=== PATIENT | male | born 1985 | race Caucasian/White ===

== ENCOUNTER 2017-02-22 21:26 | Emergency (ER) | payer MEDICAID, OTHER ==
[~2017-02-22] VITALS: Ht 172.7 cm; Wt 95.4 kg
[2017-02-22 21:29] VITALS: BP 143/97; PULSE 92; RESP 18; O2SAT 97
--- NOTE | 2017-02-22 21:59 | ED.REPORT ---
HPI-Rash / Abscess Date of Service Feb 22, 2017 ED Provider: Dr. Contreras Pt is a 31 y/o male w/ a hx of IV drug abuse presenting to the ED c/o abscess about the left axilla onset 1 week ago. The patient noticed a bump in his left axilla 1 week ago and thought it was an ingrown hair but since then it has grown into a large painful fluid filled mass. He squeezed out some pus today. Pt denies any other symptoms. The patient is an IV heroin user and reports he hasn't used in a long time. Nursing Notes Stated Complaint: BUMP UNDER LEFT ARM PIT Chief Complaint: Skin Rash/Abscess Nursing Notes Reviewed: Yes Allergies: Coded Allergies: No Known Allergies (Verified Allergy, Unknown, 02/22/17) Scheduled Sulfamethoxazole/Trimeth 800-160 mg (Bactrim DS) 1 Each Tablet 1 TABLET PO BID General Time Seen by MD: 21:59 Chief Complaint Abscess Hx Obtained From: Patient Arrived By: Walk-in Onset Occurred: 1 week ago Symptom Duration: Since onset Location: : Axilla Quality: Painful Severity: Current: Moderate Severity: Maximum: Moderate Recent Healthcare: No recent doctor visit, No recent hospitalization Similar Sx Previous: No Past Medical History Past Medical History Notes: No medications daily Past Medical History None Past Surgical History None Family History No significant family history Smoking History Current Every Day Smoker Social History Alcohol Use: Denies alcohol use Ambulatory Status Independent Review of Systems Constitutional: Denies: Chills, Fever Respiratory: Denies: Non-productive cough, Shortness of breath Cardiovascular: Denies: Chest pain, Dyspnea on exertion GI: Denies: Abdominal pain, Nausea, Vomiting Skin: Reports Rash Complete sys rev & neg: except as marked. Physical Exam Initial Vital Signs Vital Signs (First) Date Time Temp Pulse Resp B/P Pulse Ox O2 Delivery O2 Flow Rate FiO2 02/22/17 21:29 36.2 92 18 143/97 97 Room Air Initial VS: Reviewed, Vital signs normal Head / Eyes: Atraumatic, Normocephalic, PERRL ENT: Mucous membranes moist, Conjunctiva normal, No scleral icterus Neck: Supple, Full range of motion Respiratory: Breath sounds normal, Clear to auscultation, No respiratory distress Cardiovascular: Regular rate & rhythm, Heart sounds normal, Intact distal pulses Abdomen / GI: Soft, No distention Extremities: Vascular intact, Neuro intact, No swelling, No tenderness Neurologic: Alert, Oriented, Nonfocal Psychiatric: Mood/affect normal, Behavior normal, Normal thought content General/Constitutional: Awake, Alert, No acute distress, Well appearing, Cooperative, Not toxic appearing Skin: Atraumatic, Warm, Dry, Intact Abscess Notes: 1x2 cm firm mass left axillary region. No fluctuance Mild surrounding erythema Re-Eval/Medical Decision Med Decision/Clinical Course Left axillary abscess. There is no fluctuance. There is afebrile. He does have a history of IV drug use. He prefers not incision and drainage at this time. Placed on Bactrim. Return precautions given. Re-Evaluation/Progress : Time of Eval: 22:09 Re-Evaluation/Progress Note: Pt rechecked. Informed pt of plan for treatment. Pt understands and agrees with plan for treatment. F/U instructions and RTER warnings given. All questions addressed. Counseled Regarding: Diagnosis, Need for follow-up, When/why to return to ED Discharge & Departure Impression: Primary Impression: Abscess of axilla, left Disposition: Home Discharge Condition All VS Reviewed: Yes Condition: Stable Patient Instructions: Abscess (ED) Additional Instructions: You have an abscess. You opted to not have it drained today. Complete the full course of antibiotics as prescribed. Return to the emergency department for spreading rash, swelling, fever, shaking chills, lightheadedness, increased pain, vomiting, or for other concerning symptoms. Follow-up with a medical professional in 3-4 days for a recheck. The [facility] would be happy to see you if you do not have a doctor. Referrals: [facility] Scribe Attestation Portions of this note were transcribed by José Barfield. I, Dr. Contreras, personally performed the history, physical exam and medical decision-making; I reviewed and confirmed the accuracy of the information in the transcribed note. Signed by Tono Mercado, 02/22/172214 Christos Contreras MD Feb 22, 2017 21:59 JOSÉ BARFIELD Feb 22, 2017 22:09
[2017-02-22] MEDS ORDERED: SULF1TAB7 PO (22:08)
[2017-02-22] MEDS ORDERED: Trimethoprim-Sulfa 160 mg-800 mg Tablet PO ONE (22:10)
== END 2017-02-22 22:36 | disposition home or self-care (01) ==
LOC: SED 21:26
DX: L02.412 Cutaneous abscess of left axilla (principal); F17.200 Nicotine dependence, unspecified, uncomplicated